=== PATIENT | male | born 1995 | race Caucasian/White ===

== ENCOUNTER 2018-05-05 12:25 | Emergency (ER) | payer OTHER, MEDICAID | END 2018-05-05 14:42 | disposition home or self-care (01) | LOC: M ED 12:25 | DX: T15.01XA Foreign body in cornea, right eye, initial encounter (principal); W25.XXXA Contact with sharp glass, initial encounter; Y92.512 Supermarket, store or market as the place of occurrence of the external cause; E03.9 Hypothyroidism, unspecified; F32.9 Major depressive disorder, single episode, unspecified; Z88.0 Allergy status to penicillin | CPT/HCPCS: 99283 ==

== ENCOUNTER → 2022-04-27 | Outpatient (CLI) | payer OTHER ==
[~2022-04-27] MED LIST: CELE10TA PO; GENT0.3S36 OP; LEVO100T5 PO; LEVO25TA5 PO; TRAZ-252 PO
== END ==
LOC: M SOG 10:04
PROVIDERS: ATTEND Orthopaedic Surgery Hand Surgery
DX: M25.531 Pain in right wrist (principal); M25.521 Pain in right elbow

== ENCOUNTER → 2022-05-24 | Outpatient (CLI) | payer OTHER | LOC: M RAD 10:09 | PROVIDERS: ATTEND Orthopaedic Surgery Hand Surgery | DX: M25.621 Stiffness of right elbow, not elsewhere classified (principal); G56.21 Lesion of ulnar nerve, right upper limb ==

== ENCOUNTER 2023-01-21 00:17 | Emergency (ER) | payer OTHER ==
[~2023-01-21] VITALS: Ht 170.2 cm; Wt 72.7 kg
[2023-01-21 00:19] VITALS: BP 133/96
[2023-01-21] MEDS ORDERED: METH-1164 (00:27)
== END 2023-01-21 01:45 | disposition left against medical advice (07) ==
LOC: M ED 00:17
DX: Z53.21 Procedure and treatment not carried out due to patient leaving prior to being seen by health care provider (principal)

== ENCOUNTER → 2023-02-08 | Outpatient (CLI) | payer OTHER ==
[~2023-02-08] MED LIST changes: +METH-1164
== END ==
LOC: M RAD 12:53
PROVIDERS: ATTEND Nurse Practitioner Family
DX: J45.909 Unspecified asthma, uncomplicated (principal)

== ENCOUNTER → 2023-09-28 | Outpatient (CLI) | payer OTHER ==
[~2023-09-28] MED LIST changes: +GLUCAGON INJ 1MG VIAL As Ordered ONE; +ISOVUE-370 76% 100ML VIAL As Ordered ONE; +NEULUMEX 0.1% SUSPENSION 450ML BOTTLE (FORMERLY VOLUMEN) As Ordered ONE; +PANT40TA29 PO
== END ==
LOC: M RAD 08:28
PROVIDERS: ATTEND Physician Assistant Medical
DX: K62.5 Hemorrhage of anus and rectum (principal); R19.4 Change in bowel habit; R63.4 Abnormal weight loss
CPT/HCPCS: 74177; J1610; Q9967

== ENCOUNTER 2023-10-04 14:27 | Emergency (ER) | payer OTHER ==
[~2023-10-04] VITALS: Ht 172.7 cm; Wt 69.9 kg
[~2023-10-04 14:27] MED LIST changes: -GLUCAGON INJ 1MG VIAL As Ordered ONE; -ISOVUE-370 76% 100ML VIAL As Ordered ONE; -NEULUMEX 0.1% SUSPENSION 450ML BOTTLE (FORMERLY VOLUMEN) As Ordered ONE
[2023-10-04] MEDS ORDERED: CLIN150C17 PO (14:43)
[2023-10-04] MEDS ORDERED: PRED50TA PO (14:43)
[2023-10-04] MEDS ORDERED: ACETAMINOPHEN TAB 650MG DOSE (2X325MG) PO ONE (16:25)
[2023-10-04] MEDS ORDERED: IBUPROFEN 600MG TAB PO ONE (16:25)
[2023-10-04] MEDS ORDERED: BENZOCAINE 20% GEL 9GM TUBE (ANBESOL MAX STRENGTH) TOP ONE (16:25)
[2023-10-04 16:40] VITALS: BP 120/75; TEMP 98.1; O2SAT 99
== END 2023-10-04 16:47 | disposition home or self-care (01) ==
LOC: M ED 14:27
DX: S01.511A Laceration without foreign body of lip, initial encounter (principal); S00.502A Unspecified superficial injury of oral cavity, initial encounter; Y92.9 Unspecified place or not applicable; Y93.9 Activity, unspecified; Y99.9 Unspecified external cause status; Z88.0 Allergy status to penicillin; Z79.52 Long term (current) use of systemic steroids; Z79.899 Other long term (current) drug therapy

== ENCOUNTER → 2023-10-05 | Outpatient (CLI) | payer OTHER ==
[~2023-10-05] MED LIST changes: +CLIN150C17 PO; +E-Z-GAS II EFFERVESCENT PACKET (SODIUM BICARB./CITRIC ACID/SIMETHICONE) As Ordered ONE; +E-Z-HD 98% w/w 340GM SUSP BTL As Ordered ONE; +E-Z-PAQUE 96% w/w SUSP 176GM BTL As Ordered ONE; +PRED50TA PO
== END ==
LOC: M RAD 10:26
PROVIDERS: ATTEND Physician Assistant Medical
DX: R13.10 Dysphagia, unspecified (principal); R93.3 Abnormal findings on diagnostic imaging of other parts of digestive tract

== ENCOUNTER 2023-10-11 09:18 | Day surgery (SDC) | payer OTHER ==
[~2023-10-11] VITALS: Ht 172.7 cm; Wt 69.1 kg
[~2023-10-11 09:18] MED LIST changes: -E-Z-GAS II EFFERVESCENT PACKET (SODIUM BICARB./CITRIC ACID/SIMETHICONE) As Ordered ONE; -E-Z-HD 98% w/w 340GM SUSP BTL As Ordered ONE; -E-Z-PAQUE 96% w/w SUSP 176GM BTL As Ordered ONE; +NS 1,000 ML IV ONE
[2023-10-11] MEDS ORDERED: fentaNYL 100 MCG/2 ML INJECTION As Ordered ONE (09:57)
[2023-10-11] MEDS ORDERED: LIDOCAINE 2% 100MG/5ML SDV (FOR ANES.) As Ordered ONE (09:57)
[2023-10-11] MEDS ORDERED: propofoL 500 MG/50 ML VIAL As Ordered ONE (09:57)
[2023-10-11 10:44] VITALS: TEMP 97.8
[2023-10-11 11:05] VITALS: BP 128/79; O2SAT 16
== END 2023-10-11 11:15 | disposition home or self-care (01) ==
LOC: M OPP 09:18
PROVIDERS: ATTEND Internal Medicine Gastroenterology
DX: K64.8 Other hemorrhoids (principal); R19.4 Change in bowel habit; R93.3 Abnormal findings on diagnostic imaging of other parts of digestive tract; R13.12 Dysphagia, oropharyngeal phase; R13.11 Dysphagia, oral phase; G57.30 Lesion of lateral popliteal nerve, unspecified lower limb; Z79.899 Other long term (current) drug therapy; Z88.0 Allergy status to penicillin
CPT/HCPCS: 43249; 45378; 88305; J3010

== ENCOUNTER → 2024-03-05 | Outpatient (CLI) | payer OTHER ==
[~2024-03-05] MED LIST changes: -NS 1,000 ML IV ONE; +VALI2TAB PO
== END ==
LOC: M PAIN 08:30
PROVIDERS: ATTEND Anesthesiology
DX: M51.16 Intervertebral disc disorders with radiculopathy, lumbar region (principal); M54.50 Low back pain, unspecified; M79.10 Myalgia, unspecified site; M79.18 Myalgia, other site; Z79.899 Other long term (current) drug therapy; Z88.0 Allergy status to penicillin
CPT/HCPCS: 76000; G0463

== ENCOUNTER 2024-09-13 09:32 | Emergency (ER) | payer OTHER ==
[~2024-09-13] VITALS: Ht 175.3 cm; Wt 76.6 kg
[2024-09-13] MEDS: FLUORESCEIN OPHTH 1MG STRIP OU ONE (10:24)
[2024-09-13] MEDS: PROPARACAINE 0.5% OPHTH SOL 15ML OU ONE (10:24)
[2024-09-13 11:43] VITALS: BP 138/88; TEMP 97.7; O2SAT 99
[2024-09-13] MEDS ORDERED: ERYT5OIN25 OD (12:37)
== END 2024-09-13 12:47 | disposition home or self-care (01) ==
LOC: M ED 09:32
DX: S05.01XA Injury of conjunctiva and corneal abrasion without foreign body, right eye, initial encounter (principal); F32.A Depression, unspecified; F10.10 Alcohol abuse, uncomplicated; K21.9 Gastro-esophageal reflux disease without esophagitis; Z88.0 Allergy status to penicillin; Y92.9 Unspecified place or not applicable; Y93.89 Activity, other specified; Y99.0 Civilian activity done for income or pay; Z79.2 Long term (current) use of antibiotics

== ENCOUNTER 2025-08-31 10:50 | Emergency (ER) | payer OTHER ==
[~2025-08-31] VITALS: Ht 172.7 cm; Wt 67.9 kg
[~2025-08-31 10:50] MED LIST changes: +ERYT5OIN25 OD; -PRED50TA PO; +PRED50TA57 PO
[2025-08-31 14:12] VITALS: BP 130/84; TEMP 97.4; O2SAT 98
== END 2025-08-31 14:56 | disposition home or self-care (01) ==
LOC: M ED 10:50
DX: M25.571 Pain in right ankle and joints of right foot (principal); Z88.0 Allergy status to penicillin